=== PATIENT | female | born 1970 | race American Indian/Alaskan Native ===

== ENCOUNTER 2020-05-29 10:27 | Emergency (ER) | payer SELFPAY ==
--- NOTE | 2020-05-29 10:30 | Emergency Department Report ---
Blank Doc - Documentation Documentation: 49-year-old female that presents with left flank pain with n/v. This initial assessment/diagnostic orders/clinical plan/treatment(s) is/are subject to change based on patient's health status, clinical progression and re- assessment by fellow clinical providers in the ED. Further treatment and workup at subsequent clinical providers discretion. Patient/guardians urged not to elope from the ED as their condition may be serious if not clinically assessed and managed. Initial orders include: 1- Patient sent to [facility] for further evaluation and treatment 2- labs 3- UA
[2020-05-29 10:35] VITALS: BP 129/74
[2020-05-29 11:04] LABS: Hematocrit 42.1 % (30.3-42.9); Mean Corpuscular HGB Conc 33 % (30-34); Mean Corpuscular Volume 86 fl (79-97); Platelet Count 263 K/mm3 (140-440); Red Blood Count 4.88 M/mm3 (3.65-5.03); Red Cell Distribution Width 14.4 % (13.2-15.2)
[2020-05-29 11:29] LABS: Alanine Aminotransferase 16 units/L (7-56); Blood Urea Nitrogen 15 mg/dL (7-17); Calcium 10.8 mg/dL (8.4-10.2); Hemolysis Index 17
[2020-05-29 11:30] LABS: BUN/Creatinine Ratio 21
[2020-05-29 11:33] LABS: Amorphous Crystals,Urine Few; Bacteria,Urine 2+ /HPF (Negative); Bilirubin,Urine NEG (Negative); Blood,Urine NEG (Negative); Color,Urine Yellow (Yellow); Mucus,Urine 2+ /HPF; Urobilinogen,Urine < 2.0 mg/dL (<2.0)
[2020-05-29 11:34] LABS: Protein,Urine >500 mg/dL (Negative); WBC,Urine > 182.0 /HPF (0.0-6.0)
[2020-05-29] MEDS ORDERED: cefTRIAXone/NS 1 GM/50 ML 1 GM/50 ML BAG IV ONE (11:35)
[2020-05-29] MEDS ORDERED: SODIUM CHLORIDE 0.9% 1000 ML 1,000 ML IV ONE (11:35)
[2020-05-29] MEDS ORDERED: ONDANSETRON 4 MG/2 ML INJ IV ONE (11:36)
--- NOTE | 2020-05-29 11:47 | Emergency Department Report ---
HPI - General Chief Complaint: Abdominal Pain Time Seen by Provider: 05/29/20 10:29 - HPI HPI: This is a 49-year-old female presents to the emergency department with a complaint of nausea and vomiting since last night at about 6:30 PM. The patient has been having a 2-day history of some intermittent left-sided flank pain and also has been having exacerbation of right-sided sciatica. She took some naproxen last night and does not think that she ate enough food with it and has been having the nausea and vomiting since that time. The patient also thinks that she might have a urinary tract infection and she has some burning with urination. She has a past medical history of hypertension and HIV. She has not taken anything for symptoms prior to presentation. She denies any vaginal bleeding or discharge, fever, chest pain or shortness of breath. No sick contacts at home. ED Past Medical Hx - Past Medical History Previous Medical History?: Yes Hx Hypertension: Yes Hx HIV: Yes - Surgical History Past Surgical History?: Yes - Social History Smoking Status: Never Smoker Substance Use Type: Alcohol - Medications Home Medications: Home Medications Medication Instructions Recorded Confirmed Last Taken Type Ondansetron [Zofran Odt] 4 mg PO Q8HR PRN #15 tab.rapdis 05/29/20 Unknown Rx Sulfamethoxazole/Trimethoprim 1 each PO BID #20 tablet 05/29/20 Unknown Rx [Bactrim DS TAB] ED Review of Systems ROS: Stated complaint: TOOK MEDS/VOMIT Other details as noted in HPI Comment: All other systems reviewed and negative Constitutional: denies: chills, fever Eyes: denies: eye pain, vision change ENT: denies: ear pain, throat pain Respiratory: denies: cough, shortness of breath Cardiovascular: denies: chest pain, palpitations Gastrointestinal: abdominal pain (left flank), nausea, vomiting Genitourinary: dysuria. denies: discharge Musculoskeletal: denies: joint swelling, arthralgia Skin: denies: rash, lesions Neurological: denies: headache, weakness Physical Exam - Physical Exam Vital Signs: Vital Signs 05/29/20 10:31 Temperature 97.7 F Pulse Rate 81 Respiratory 20 Rate Blood Pressure 129/74 O2 Sat by Pulse 100 Oximetry Physical Exam: GENERAL: The patient is well-developed well-nourished. HENT: Normocephalic. Atraumatic. Patient has moist mucous membranes. EYES: Extraocular motions are intact. NECK: Supple. Trachea is midline. CHEST/LUNGS: Clear to auscultation. There is no respiratory distress noted. HEART/CARDIOVASCULAR: Regular. There is no tachycardia. ABDOMEN: Abdomen is soft, nontender. Patient has normal bowel sounds. There is no abdominal distention. SKIN: Skin is warm and dry. NEURO: The patient is awake, alert, and oriented. The patient is cooperative. Normal speech. MUSCULOSKELETAL: There is no tenderness or deformity. BACK: No CVA tenderness to palpation. ED Course Vital Signs 05/29/20 10:31 Temperature 97.7 F Pulse Rate 81 Respiratory 20 Rate Blood Pressure 129/74 O2 Sat by Pulse 100 Oximetry ED Medical Decision Making - Lab Data Result diagrams: 05/29/20 10:51 05/29/20 10:51 - Radiology Data Radiology results: image reviewed interpreted by me: Abdominal x-ray shows nonspecific nonobstructive bowel gas. - Medical Decision Making This patient presents to the emergency department with a main complaint of nausea and vomiting that is been going on since last night. At first she thought it was secondary to some naproxen she had been taking for some intermittent left-sided flank pain. At the time of my examination she does not have this flank pain. No CVA tenderness to palpation. An IV was placed and the patient was given a dose of Zofran and some IV fluid resuscitation. Patient's labs are mostly unremarkable except for the urinalysis which shows a significant urinary tract infection. There is some hematuria as well with about 30 red blood cells in the urine. All this together appears most consistent with pyelonephritis. It also could be consistent with nephrolithiasis but the flank pain has been going on intermittently over multiple days. Vital signs been reassuring including being afebrile. She was given a dose of IV Rocephin. The patient was able to pass an oral challenge and is feeling improved after treatment. She will be discharged home with oral antibiotics and antiemetics. She has been instructed to follow-up with primary care and return to the ER with any worsening of her symptoms or with any acute distress. Critical Care Time: No Critical care attestation.: If time is entered above; I have spent that time in minutes in the direct care of this critically ill patient, excluding procedure time. ED Disposition Clinical Impression: Pyelonephritis UTI (urinary tract infection) Qualifiers: Urinary tract infection type: acute cystitis Hematuria presence: with hematuria Qualified Code(s): N30.01 - Acute cystitis with hematuria Nausea & vomiting Qualifiers: Vomiting type: unspecified Vomiting Intractability: non-intractable Qualified Code(s): R11.2 - Nausea with vomiting, unspecified Disposition: TO HOME OR SELFCARE Is pt being admited?: No Condition: Stable Instructions: Urinary Tract Infection in Women (ED), Acute Pyelonephritis (ED), Acute Nausea and Vomiting (ED) Additional Instructions: Please follow-up with a primary care physician in the next few days. Increase your oral rehydration. Take the medications as prescribed. Return to the closest emergency department with any worsening of your symptoms, or with any acute distress. Prescriptions: Sulfamethoxazole/Trimethoprim [Bactrim DS TAB] 1 each PO BID #20 tablet Ondansetron [Zofran Odt] 4 mg PO Q8HR PRN #15 tab.rapdis PRN Reason: Nausea Referrals: PRIMARY CARE, [Primary Care Provider] - 2-3 Days Time of Disposition: 13:09
[2020-05-29 12:09] LABS: Basophils % (Manual) 0 % (0.0-1.8); Eosinophils % (Manual) 0 % (0.0-4.3); Total Cells Counted 100
[2020-05-29 12:10] LABS: Giant Platelets Few; Platelet Estimate Consistent w Auto; RBC Morphology Normal
--- NOTE | 2020-05-29 12:15 | XRay Report ---
ABDOMEN 2 VIEW(S) INDICATION / CLINICAL INFORMATION: Abd pain. COMPARISON: None available. FINDINGS: TUBES / LINES: None. BOWEL GAS PATTERN: No significant abnormality. FREE AIR / EXTRALUMINAL GAS: None seen. ADDITIONAL FINDINGS: No significant additional findings. IMPRESSION: 1. No significant abnormality. Signer Name: Kirit Philippe MD Signed: 05/29/2020 12:10 PM Workstation Name: [id number]
== END 2020-05-29 13:20 | disposition home or self-care (01) ==
LOC: ED 10:27
DX: N39.0 Urinary tract infection, site not specified (principal); N12 Tubulo-interstitial nephritis, not specified as acute or chronic
CPT/HCPCS: 36415; 74019; 80053; 81001; 83690; 85007; 85025; 96366; 96374; 96375; 99284; J0696; J2405; J7030; 96365